=== PATIENT | male | born 1955 | race Hispanic/Latino ===

== ENCOUNTER → 2019-05-01 | Day surgery (SDC) | payer BC ==
[2019-04-29 12:21] LABS: ANION GAP 12.3 mmol/L (8-16); BLOOD UREA NITROGEN 15 mg/dL (7-26); BUN/CREATININE RATIO 14 (6-25); CALCIUM 9.8 mg/dL (8.4-10.2); CARBON DIOXIDE 29 mmol/L (22-29); CHLORIDE 100 mmol/L (98-107); CREATININE, SERUM 1.08 mg/dL (0.72-1.25); EST GLOMERULAR FILTRATION RATE > 60 ML/MIN (60-); GLUCOSE 136 mg/dL (74-118); POTASSIUM 4.3 mmol/L (3.5-5.1); SODIUM 137 mmol/L (136-145)
--- NOTE | 2019-04-29 12:58 | Diagnostic Imaging Report ---
EXAMINATION: CHEST 2 VIEWS INDICATION: Pre-operative COMPARISON: None FINDINGS: LINES/TUBES:None LUNGS:The lungs are well-inflated. No focal consolidation or pulmonary edema. PLEURA:No pleural effusion or pneumothorax. MEDIASTINUM:The cardiomediastinal silhouette appears normal in size and shape. BONES/SOFT TISSUES:No acute osseous injury. ABDOMEN:No free air under the diaphragm. IMPRESSION: No focal pneumonia or pulmonary edema. Signed by: Emmanuel Suarez MD on 04/29/2019 12:55 PM
[~2019-05-01] MED LIST: ACETAMINOPHEN 1000 MG/100 ML IV ONE; ASPIRIN81 MG PO; BUPIVACAINE HCL 0.5% INJ 30 ML VIAL INJ ONE; CEFAZOLIN SOD 1 GM/NS 50ML 50 ML IV ONE; CENTRUM SILVER1 EAC3 PO; DEXAMETHASONE SOD PHOS INJ 4 MG/ML VIAL ONE; ENALAPRIL MALE2.5 MG PO; FENTANYL CITRATE/PF 100MCG/2 ML INJ ONE; FERROUS SULFAT324 MG PO; GLIPIZIDE5 MG PO; JANUMET 50-5001 EACH PO; LIDOCAINE HCL 2% LOCAL INJ 5 ML SDV VIAL INJ ONE; MIDAZOLAM HCL 2 MG/2 ML VIAL ONE; MORINGA PO; ONDANSETRON HCL INJ 2MG/ML 2ML 2 MG/ML VIAL ONE; PIOGLITAZONE HC45 MG PO; PROPOFOL IV EMULSION 10 MG/ML 20 ML VIAL ONE; SEVOFLURANE INHAL SOLN 250 ML PEN BTL ONE; SIMVASTATIN20 MG PO
--- OUTSIDE RECORDS SUMMARY | 2019-05-01 05:11 | XMS REPORT ---
Author [facility] Address Unknown Phone Unavailable Care Team Providers Care Meal Miller Name Role Phone Anibal NEVILLE Unavailable Unavailable Problems This patient has no known problems. Allergies, Adverse Reactions, Alerts This patient has no known allergies or adverse reactions. Medications This patient has no known medications. Encounters Start Date/Time End Date/Time Encounter Type Admission Type Attending [facility] Care Department Encounter ID 2019-03-19 13:59:00 2019-03-19 13:59:00 Outpatient [facility] CAR [id number] 2019-01-29 10:43:00 2019-01-29 10:43:00 Outpatient [facility] CAR [id number] 2018-01-29 09:49:00 2018-01-29 09:49:00 Outpatient [facility] CAR [id number] Results Test Description Test Time Test Comments Text Results Atomic Results Result Comments CHEST 2 VIEWS 2019-04-29 12:55:00 [place] [id number] Patient Name: MAINE BORRERO MR #: [id number] : 1955 Age/Sex: 63/M Req #: [id number] Adm Physician: Ordered by: DIGNA NEVILLE DPM Report #: [id number] Location: OR Room/Bed: Procedure: [id number] DX/CHEST 2 VIEWS Exam Date: Exam Time: REPORT STATUS: Signed EXAMINATION: CHEST 2 VIEWS INDICATION: Pre-operative COMPARISON: None FINDINGS: LINES/TUBES:None LUNGS:The lungs are well- inflated. No focal consolidation or pulmonary edema. PLEURA:No pleural effusion or pneumothorax. MEDIASTINUM:The cardiomediastinal silhouette appears normal in size and shape. BONES/SOFT TISSUES:No acute osseous injury. ABDOMEN:No free air under the diaphragm. IMPRESSION: No focal pneumonia or pulmonary edema. Signed by: Jessica Suarez MD on 04/29/2019 12:55 PM Dictated By: JESSICA SUAREZ MD 1255 Transcribed By: JERRY on 04/29/19 1255 COPY TO: DIGNA NEVILLE DPM CR - XRAY CHEST XR 2 VIEWS CLINICAL INDICATION: R05 CoughTECHNIQUE: PA and lateral views of the chest.FINDINGS: Comparison study: 08/14/2014The lungs are clear. There are no infiltrates or effusions.The cardiac silhouette is un remarkable. The torri and mediastinum are intact.The regional skeleton is intact.IMPRESSION:No acute abnormalities in the chest.
[2019-05-01 08:20] VITALS: BP 107/77
--- NOTE | 2019-05-01 13:10 | Operative Report ---
DATE OF PROCEDURE: 05/01/2019 SURGEON: Candie Schmitt DPM PREOPERATIVE DIAGNOSIS: Right hallux valgus, hallux rigidus. POSTOPERATIVE DIAGNOSIS: Right hallux valgus, hallux rigidus. PLANNED PROCEDURE: Right Diaz bunionectomy with implant. ANESTHESIA: General with a postoperative block consisting of 15 mL of 0.5% Marcaine plain mixed with 1 mL of dexamethasone phosphate. HEMOSTASIS: Pneumatic thigh tourniquet set at 350 mmHg for a total time of approximately 30 minutes. MATERIALS: One size 2 [id number] toe reference implant, 2-0 Vicryl, 3-0 Vicryl, and 4-0 nylon. ESTIMATED BLOOD LOSS: Less than 10 mL. PATHOLOGY: None. PROCEDURE NOTE: The patient was seen in the preoperative waiting room. The correct procedure and site were identified. The patient was brought to the operating room and placed on the operating table in the supine position. General anesthesia was initiated. At this time, a well-padded pneumatic tourniquet was placed about the patient's right thigh. The right foot, ankle, and leg was then scrubbed, prepped, and draped in the usual aseptic manner. The right foot, ankle, and leg was exsanguinated with an Esmarch bandage and a pneumatic thigh tourniquet was inflated to 350 mmHg for a total time of approximately 30 minutes. Attention was directed to the dorsal medial aspect of the patient's right foot, where a 5 cm curvilinear incision was made directly over the 1st metatarsophalangeal joint extending to the proximal midshaft of the proximal phalanx. The incision was carried to the subcutaneous tissues them from deep or underling structures. All vital and neurovascular structures were identified, retracted medially and laterally, and all bleeders were cauterized or ligated as deemed necessary. At this time, the dissection was carried down to the level of the 1st interspace through the same incision and a full lateral release was performed consisting of the deep transverse metatarsal ligament, lateral collateral ligament as well as the fibular sesamoidal ligament. The hallux was then put through range of motion and found to be functioning in a more proper anatomic alignment. Next, attention was directed back to the 1st metatarsal head, where a linear capsulotomy was performed and the capsule was reflected to allow for good visualization of the 1st metatarsal head. It should be noted that there was significant arthritic damage to the 1st metatarsal head as well as the base of the proximal phalanx. It was approximately 60% of the head of the 1st metatarsal and greater than 50% of the base of the proximal phalanx. A decision was made to proceed with the Diaz with an implant. Next, utilizing a sagittal saw, the medial eminence was resected and passed off to the back table. The dorsal eminence was reduced as well. Next, per manufacture protocol, osteotomy was performed with the distal articular cartilage of the 1st metatarsal as well as the base of the proximal phalanx and these bones were removed and passed off to the back table. The wound was then prepped for the implant by drilling into the 1st metatarsal head and the correct alignment was confirmed via intraoperative fluoroscopy. Next, per manufacture protocol, the hole of the metatarsal head as well as the proximal phalanx was reamed. The wound was then copiously irrigated with sterile saline. Next, the grommets were placed to the proximal phalanx as well as the metatarsal head and the implant was placed, confirmed via intraoperative fluoroscopy and noted to be in good anatomic alignment. The wound was then again copiously irrigated with sterile saline. Capsule and deep tissue were reapproximated with 2-0 Vicryl, subcutaneous tissue with 3-0 Vicryl, and the skin was closed using simple interrupted sutures with 4-0 nylon. The patient tolerated the procedure and anesthesia well. The patient was transferred to the postop recovery room with vital signs stable and vascular status intact. The patient was monitored there for a short period of time before being sent home with the following written and oral instructions: 1. Keep the dressing clean, dry, and intact. 2. The patient is to remain partial weightbearing with heel touch only in a postop shoe with abducted gait to avoid excessive ambulation until being seen in the office. 3. The patient was given the office number and instructed to contact us if any problems arise. NEDA Roberson/MODL /[phone]
== END | disposition home or self-care (01) ==
LOC: OR 05:00
PROVIDERS: ATTEND Podiatrist Foot & Ankle Surgery
DX: M20.21 Hallux rigidus, right foot (principal); Z01.810 Encounter for preprocedural cardiovascular examination; Z01.812 Encounter for preprocedural laboratory examination; Z01.811 Encounter for preprocedural respiratory examination; M20.11 Hallux valgus (acquired), right foot; M21.611 Bunion of right foot; E11.9 Type 2 diabetes mellitus without complications; I10 Essential (primary) hypertension; E78.00 Pure hypercholesterolemia, unspecified
CPT/HCPCS: 28291; 36415 ×2; 71046; 80048; 82948; 93005; C1713; J0131; J0690; J1100; J2001; J2250; J2405; J2704; J3010

== ENCOUNTER → 2019-05-28 | Day surgery (SDC) | payer BC ==
[~2019-05-28] MED LIST changes: +KETOROLAC TROMETHAMINE 30 MG/ML VIAL ONE; -MIDAZOLAM HCL 2 MG/2 ML VIAL ONE
[2019-05-28 08:15] VITALS: BP 126/77
--- NOTE | 2019-05-28 15:07 | Operative Report ---
DATE OF PROCEDURE: 05/28/2019 SURGEON: Candie Schmitt DPM PREOPERATIVE DIAGNOSES: 1. Right dislocated metatarsophalangeal joint. 2. Right painful hardware. POSTOPERATIVE DIAGNOSES: 1. Right dislocated metatarsophalangeal joint. 2. Right painful hardware. PLANNED PROCEDURE: 1. Right repair of 1st MPJ dislocation. 2. Removal of hardware with replacement of hardware. WILDLIFE BIOLOGIST: None. ANESTHESIA: General with a postoperative block consisting of 10 mL of 0.5% Marcaine plain. HEMOSTASIS: Pneumatic ankle tourniquet set at 250 am mmHg for a total time of approximately 15 minutes. MATERIALS: One size 2 [id number] toe reference implant, 3-0 Vicryl, 3-0 nylon. PATHOLOGY: None. PROCEDURE NOTE: The patient was seen in the preoperative waiting room and the correct procedure and site was identified. The patient was brought to the operating room and placed on the operating table in the supine position. General anesthesia was initiated. At this time, a well-padded pneumatic tourniquet was placed about the patient's right thigh. The right foot, ankle, and leg were then scrubbed, prepped, and draped in the usual aseptic manner. The right foot was then exsanguinated with an Esmarch bandage and the pneumatic ankle tourniquet was inflated to 250 mmHg for a total time of approximately 20 minutes. Attention was directed to the dorsal aspect of the patient's right foot where a previous incision site was noted. Remaining sutures were removed. A 3 cm linear incision was made directly over the previous incision site. The incision was carried through subcutaneous tissue them from deep or underlying structures. It should be noted that previous scar tissue from surgery was noted. The dissection was carried down to the 1st metatarsophalangeal joint where the previous implant is noted and it was noted to be rotated approximately 90 degrees medially. The implant was removed and examined. There was noted to be a slight defect in the plantar medial aspect of the implant. This was removed and passed off to the back table. The wound was then copiously irrigated with sterile saline. A new size 2 [id number] reference implant was placed with new grommets. Intraoperative fluoroscopy reveals to be in good position and alignment. The wound was then again copiously irrigated with sterile saline. The capsule and deep tissue were reapproximated with 3-0 Vicryl, subcutaneous tissue with 3-0 Vicryl and the skin was closed using simple interrupted sutures with 3-0 nylon. The patient tolerated the procedure and anesthesia well. The patient was transferred to the postoperative recovery unit with vital signs stable and vascular status intact. The patient was monitored there for a short period of time before being sent home with the final written and oral instructions. 1. Keep the dressing clean, dry, and intact. 2. The patient is to remain only partial heel touch weightbearing in a postop shoe and to avoid excessive ambulation until being seen in the office. 3. The patient was given the office number and instructed to contact us if any problems arise. NEDA Roberson/ARDEN /[phone]
== END | disposition home or self-care (01) ==
LOC: OR 05:19
PROVIDERS: ATTEND Podiatrist Foot & Ankle Surgery
DX: S93.121A Dislocation of metatarsophalangeal joint of right great toe, initial encounter (principal); E11.9 Type 2 diabetes mellitus without complications; I10 Essential (primary) hypertension; E78.5 Hyperlipidemia, unspecified; T84.84XA Pain due to internal orthopedic prosthetic devices, implants and grafts, initial encounter; Z79.82 Long term (current) use of aspirin; Z79.84 Long term (current) use of oral hypoglycemic drugs
CPT/HCPCS: 28645; 36415; 82948; J0131; J0690; J1100; J1885; J2001; J2405; J2704; J3010; L8642

== ENCOUNTER 2019-05-29 12:58 | Emergency (ER) | payer BC ==
[~2019-05-29] VITALS: Ht 167.6 cm; Wt 90.7 kg
[~2019-05-29 12:58] MED LIST changes: -ACETAMINOPHEN 1000 MG/100 ML IV ONE; -BUPIVACAINE HCL 0.5% INJ 30 ML VIAL INJ ONE; -CEFAZOLIN SOD 1 GM/NS 50ML 50 ML IV ONE; -DEXAMETHASONE SOD PHOS INJ 4 MG/ML VIAL ONE; -FENTANYL CITRATE/PF 100MCG/2 ML INJ ONE; -KETOROLAC TROMETHAMINE 30 MG/ML VIAL ONE; -LIDOCAINE HCL 2% LOCAL INJ 5 ML SDV VIAL INJ ONE; -ONDANSETRON HCL INJ 2MG/ML 2ML 2 MG/ML VIAL ONE; -PROPOFOL IV EMULSION 10 MG/ML 20 ML VIAL ONE; -SEVOFLURANE INHAL SOLN 250 ML PEN BTL ONE
[2019-05-29] MEDS ORDERED: SODIUM CHLORIDE 0.9% 1000ML 1,000 ML IV STA ×2 (13:42→16:31)
--- NOTE | 2019-05-29 13:45 | NUR ---
BLOOD DONE AND URINE DONE TO LAB
[2019-05-29 14:39] LABS: BASOPHILS % 0.4 % (0.0-1.0); EOSINOPHILS % 0.4 % (0.0-6.0); HEMATOCRIT 39.4 % (38.2-49.6); HEMOGLOBIN 13.5 g/dL (14.0-18.0); LYMPHOCYTES # (AUTO) 0.9 (1.0-3.2); LYMPHOCYTES % 11.3 % (18.0-39.1); MEAN CORPUSCULAR HEMOGLOBIN 32.7 pg (28-32); MEAN CORPUSCULAR HGB CONC 34.3 g/dL (31-35); MEAN CORPUSCULAR VOLUME 95.4 fL (81-99); MONOCYTES # (AUTO) 0.5 (0.2-0.8); MONOCYTES % 6.5 % (4.4-11.3); NEUTROPHILS # (AUTO) 6.1 (2.1-6.9); NEUTROPHILS % 80.9 % (38.7-80.0); PLATELET COUNT 187 x10e3/uL (140-360); RED BLOOD COUNT 4.13 x10e6/uL (4.3-5.7); RED CELL DISTRIBUTION WIDTH 12.8 % (11.7-14.4)
[2019-05-29 14:40] LABS: BILIRUBIN,URINE NEGATIVE (NEGATIVE); CLARITY,URINE SL CLOUDY (CLEAR); COLOR,URINE YELLOW (YELLOW); KETONES,URINE 1+ (NEGATIVE); LEUKOCYTE ESTERASE ,URINE NEGATIVE (NEGATIVE); NITRITE,URINE NEGATIVE (NEGATIVE); PROTEIN,URINE DIPSTICK 2+ (NEGATIVE); URINE UROBILINOGEN 0.2 mg/dL (0.2 - 1)
[2019-05-29 14:50] LABS: INR 0.93; PARTIAL THROMBOPLASTIN TIME 28.1 seconds (23.8-35.5)
[2019-05-29 14:53] LABS: BACTERIA,URINE RARE /HPF; EPITHELIAL CELLS,URINE RARE /LPF; MUCUS,URINE RARE (RARE)
[2019-05-29 14:58] LABS: ALBUMIN 3.9 g/dL (3.5-5.0); ALBUMIN/GLOBULIN RATIO 1.1 (0.8-2.0); ANION GAP 15.6 mmol/L (8-16); CALCIUM 9.7 mg/dL (8.4-10.2); CREATININE, SERUM 1.24 mg/dL (0.72-1.25); MAGNESIUM 1.7 MG/DL (1.3-2.1)
[2019-05-29 15:09] LABS: POTASSIUM 6.6 mmol/L (3.5-5.1)
--- NOTE | 2019-05-29 16:10 | Diagnostic Imaging Report ---
EXAM: CT Abdomen and Pelvis WITH intravenous contrast INDICATION: Abdominal pain COMPARISON: None. TECHNIQUE: Abdomen and pelvis were scanned utilizing a multidetector helical scanner from the lung base to the pubic symphysis after administration of IV contrast. Coronal and sagittal reformations were obtained. Routine protocol was performed. Scan was performed during portal venous phase. IV CONTRAST: 100mL of Isovue 370 ORAL CONTRAST: Water RADIATION DOSE: Total DLP: 653.1 mGy*cm Dose modulation, iterative reconstruction, and/or weight based adjustment of the mA/kV was utilized to reduce the radiation dose to as low as reasonably achievable. FINDINGS: LOWER THORAX: Normal. HEPATOBILIARY: Diffuse hepatic steatosis. No focal liver lesion. No biliary ductal dilation. Normal gallbladder. SPLEEN: No splenomegaly. PANCREAS: No focal mass or ductal dilation. Minimal peripancreatic fat stranding adjacent to the pancreatic head. ADRENALS: No adrenal nodules. KIDNEYS/URETERS: No hydronephrosis, stones, or solid mass lesions. PELVIC ORGANS/BLADDER: Unremarkable. PERITONEUM / RETROPERITONEUM: No free air or fluid. LYMPH NODES: No lymphadenopathy. VESSELS: Scattered atherosclerotic calcifications of the nonaneurysmal abdominal aorta and major branches. GI TRACT: Mild diverticulosis. No CT evidence of diverticulitis. No abnormal bowel thickening. No bowel obstruction. Normal appendix. BONES AND SOFT TISSUES: Unremarkable. IMPRESSION: Minimal peripancreatic fat stranding adjacent to the pancreatic head is nonspecific and may represent mild pancreatitis in the proper clinical setting. Diffuse hepatic steatosis. Signed by: Emmanuel Suarez MD on 05/29/2019 4:07 PM
[2019-05-29 16:23] LABS: ANION GAP 12.7 mmol/L (8-16); BLOOD UREA NITROGEN 16 mg/dL (7-26); BUN/CREATININE RATIO 15 (6-25); CALCIUM 8.8 mg/dL (8.4-10.2); CARBON DIOXIDE 23 mmol/L (22-29); CHLORIDE 95 mmol/L (98-107); CREATININE, SERUM 1.07 mg/dL (0.72-1.25); EST GLOMERULAR FILTRATION RATE > 60 ML/MIN (60-); GLUCOSE 209 mg/dL (74-118); POTASSIUM 4.7 mmol/L (3.5-5.1); SODIUM 126 mmol/L (136-145)
[2019-05-29] MEDS ORDERED: MORPHINE SULFATE 5 MG/ML VIAL IV ONE (16:45)
[2019-05-29 16:59] LABS: CREATINE KINASE MB 1.9 ng/mL (0-5.0)
[2019-05-29] MEDS ORDERED: MORPHINE SULFATE INJ 4 MG/ML INJ 1ML IV ONE (17:00)
--- NOTE | 2019-05-29 17:07 | Diagnostic Imaging Report ---
EXAMINATION: CHEST SINGLE (PORTABLE) INDICATION: Pain. COMPARISON: None FINDINGS: TUBES and LINES: None. LUNGS: Lungs are well mildly hypoinflated. Lungs are clear. Mild elevation of the right hemidiaphragm. There is no evidence of pneumonia or pulmonary edema. PLEURA: No pleural effusion or pneumothorax. HEART AND MEDIASTINUM: The cardiomediastinal silhouette is unremarkable. Mild dilatation of the trachea to the right of the midline. BONES AND SOFT TISSUES: No acute osseous lesion. Soft tissues are unremarkable. UPPER ABDOMEN: No free air under the diaphragm. IMPRESSION: No acute thoracic abnormality. Signed by: Dr. Lary Fall M.D. on 05/29/2019 5:04 PM
[2019-05-29] MEDS ORDERED: IOPAMIDOL 370 MG/ML 200 ML INFUS..BTL INJ ONE (22:05)
[2019-05-29] MEDS ORDERED: SODIUM CHLORIDE 0.9% 50ML 50 ML ONE (22:05)
== END 2019-05-29 19:10 | disposition home or self-care (01) ==
LOC: ER 12:58
DX: R10.33 Periumbilical pain (principal); R11.0 Nausea; I10 Essential (primary) hypertension; E11.65 Type 2 diabetes mellitus with hyperglycemia; I25.10 Atherosclerotic heart disease of native coronary artery without angina pectoris; E78.5 Hyperlipidemia, unspecified; D64.9 Anemia, unspecified
CPT/HCPCS: 36415; 71045; 74177; 80048; 80053; 81001; 82150; 82270; 82550; 82553; 83690; 83735; 84484; 85025; 85610; 85730; 93005; 99284; J2270; J7030; Q9967

== ENCOUNTER 2023-06-30 08:01 | Emergency (ER) | payer BC, MEDICARE ==
[~2023-06-30] VITALS: Ht 167.6 cm; Wt 90.7 kg
[2023-06-30 08:05] VITALS: O2SAT 98
[2023-06-30] MEDS ORDERED: BELLADONNA ALK/PHENOBARBITAL 5 ML UDC PO ONE (08:15)
[2023-06-30] MEDS ORDERED: MAGNESIUM/ALUMINUM/SIMETHICONE 30 ML UDC PO ONE (08:15)
[2023-06-30] MEDS ORDERED: LIDOCAINE VISC 2% SOLN 15 ML UDC PO ONE (08:15)
[2023-06-30] MEDS ORDERED: CHLORPROMAZINE HCL 25 MG TAB PO ONE (08:30)
[2023-06-30 08:36] LABS: STREPTOCOCCUS GRP A ANTIGEN NEGATIVE (NEGATIVE)
[2023-06-30 08:48] LABS: INFLUENZAE A&B ANTIGEN (RAPID) NEGATIVE (NEGATIVE)
== END 2023-06-30 09:20 | disposition home or self-care (01) ==
LOC: ER 08:08
DX: R50.9 Fever, unspecified (principal); U07.1 COVID-19; K21.9 Gastro-esophageal reflux disease without esophagitis; I10 Essential (primary) hypertension; E11.9 Type 2 diabetes mellitus without complications; E78.5 Hyperlipidemia, unspecified; D64.9 Anemia, unspecified
CPT/HCPCS: 71046; 83518; 87070; 87400; 99283; Q0161; U0002